=== PATIENT | male | born 1995 | race African-American/Black ===

== ENCOUNTER 2024-07-02 19:20 | Inpatient (IN) | payer SELFPAY ==
[~2024-07-02] VITALS: Ht 170.2 cm; Wt 77.1 kg
[2024-07-02] MEDS: ONDANSETRON HCL INJ 2MG/ML 2ML 2 MG/ML VIAL IV STA (20:50)
[2024-07-02] MEDS: Morphine 4mg INJECTION 4 MG/ML INJ IV STA (20:50)
[2024-07-02 21:05] LABS: BASOPHILS # (AUTO) 0.1 (0.0-0.1); BASOPHILS % 0.2 % (0.0-1.0); HEMATOCRIT 48.8 % (38.2-49.6); HEMOGLOBIN 16.9 g/dL (14.0-18.0); LYMPHOCYTES # (AUTO) 1.4 (1.0-3.2); LYMPHOCYTES % 5.8 % (18.0-39.1); MEAN CORPUSCULAR HEMOGLOBIN 33.5 pg (28-32); MEAN CORPUSCULAR HGB CONC 34.6 g/dL (31-35); MEAN CORPUSCULAR VOLUME 96.8 fL (81-99); MONOCYTES # (AUTO) 1.4 (0.2-0.8); MONOCYTES % 5.9 % (4.4-11.3); NEUTROPHILS # (AUTO) 21.2 (2.1-6.9); NEUTROPHILS % 87.2 % (38.7-80.0); PLATELET COUNT 405 x10e3/uL (140-360); RED BLOOD COUNT 5.04 x10e6/uL (4.3-5.7); RED CELL DISTRIBUTION WIDTH 12.5 % (11.7-14.4); WHITE BLOOD COUNT 24.33 x10e3/uL (4.8-10.8)
[2024-07-02 21:24] LABS: ALBUMIN 3.9 g/dL (3.5-5.0); ALBUMIN/GLOBULIN RATIO 0.8 (0.8-2.0); ANION GAP 19.2 mmol/L (8-16); BILIRUBIN,TOTAL 1.4 mg/dL (0.2-1.2); CALCIUM 9.5 mg/dL (8.4-10.2); CREATININE, SERUM 1.46 mg/dL (0.72-1.25); POTASSIUM 4.2 mmol/L (3.5-5.1); TOTAL PROTEIN 8.5 g/dL (6.5-8.1)
[2024-07-02] MEDS ORDERED: IOPAMIDOL 370 MG/ML 100 ML INFUS..BTL INJ ONE (21:47)
[2024-07-02] MEDS: ACETAMINOPHEN 325 MG TAB PO STA (22:03)
[2024-07-02] MEDS: SODIUM CHLORIDE 0.9% 1000ML 1,000 ML IV STA ×3 (22:04)
[2024-07-02] MEDS ORDERED: HYDROMORPHONE 1MG/1ML INJ IV STA (23:05)
[2024-07-02 23:12] LABS: CLARITY,URINE CLEAR (CLEAR); COLOR,URINE YELLOW (YELLOW); LEUKOCYTE ESTERASE ,URINE NEGATIVE (NEGATIVE); NITRITE,URINE NEGATIVE (NEGATIVE); PH,URINE 6 (5 - 7); PROTEIN,URINE DIPSTICK 1+ (NEGATIVE)
[2024-07-02 23:13] LABS: BILIRUBIN,URINE NEGATIVE (NEGATIVE); GLUCOSE, URINE NEGATIVE (NEGATIVE); KETONES,URINE NEGATIVE (NEGATIVE); URINE UROBILINOGEN 0.2 mg/dL (0.2 - 1)
[2024-07-02] MEDS ORDERED: DIAZEPAM INJ 5 MG/ML 2 ML IV ONE (23:15)
[2024-07-02] MEDS: IBUPROFEN 400 MG TAB PO ONE (23:25)
[2024-07-02 23:26] LABS: BACTERIA,URINE MANY /HPF; EPITHELIAL CELLS,URINE FEW /LPF
[2024-07-02 23:28] LABS: AMPHETAMINES SCREEN,URINE NEGATIVE (NEGATIVE); BENZODIAZEPINES SCREEN,URINE NEGATIVE (NEGATIVE); CANNABINOIDS SCREEN,URINE NEGATIVE (NEGATIVE); METHADONE SCREEN, URINE NEGATIVE (NEGATIVE); OPIATES SCREEN,URINE POSITIVE (NEGATIVE); PHENCYCLIDINE SCREEN,URINE NEGATIVE (NEGATIVE)
[2024-07-03] VITALS (11 sets, daily range): BP systolic 128–165; BP diastolic 86–98; PULSE 113–135; RESP 18–20; TEMP 97.8–100.3; O2SAT 95–100
[2024-07-03] MEDS: SODIUM CHLORIDE 0.9% 1000ML 1,000 ML IV SCH (01:24)
[2024-07-03] MEDS: DIAZEPAM INJ 5 MG/ML 2 ML IV ONE ×3 (01:24→03:29)
[2024-07-03 04:43] LABS: BASOPHILS % 0.3 % (0.0-1.0); EOSINOPHILS % 0.3 % (0.0-6.0); HEMATOCRIT 35.4 % (38.2-49.6); LYMPHOCYTES # (AUTO) 1.6 (1.0-3.2); LYMPHOCYTES % 11.1 % (18.0-39.1); MEAN CORPUSCULAR HEMOGLOBIN 33.4 pg (28-32); MEAN CORPUSCULAR HGB CONC 33.6 g/dL (31-35); MEAN CORPUSCULAR VOLUME 99.4 fL (81-99); MONOCYTES # (AUTO) 1.1 (0.2-0.8); MONOCYTES % 7.4 % (4.4-11.3); NEUTROPHILS # (AUTO) 11.6 (2.1-6.9); NEUTROPHILS % 79.9 % (38.7-80.0); PLATELET COUNT 265 x10e3/uL (140-360); RED BLOOD COUNT 3.56 x10e6/uL (4.3-5.7); RED CELL DISTRIBUTION WIDTH 12.4 % (11.7-14.4); WHITE BLOOD COUNT 14.55 x10e3/uL (4.8-10.8)
[2024-07-03] MEDS ORDERED: DIAZEPAM INJ 5 MG/ML 2 ML IV STA (04:56)
[2024-07-03 05:05] LABS: ALBUMIN 2.7 g/dL (3.5-5.0); ALBUMIN/GLOBULIN RATIO 0.9 (0.8-2.0); ANION GAP 14.4 mmol/L (8-16); CREATININE, SERUM 1.15 mg/dL (0.72-1.25)
[2024-07-03 05:12] LABS: HEMOGLOBIN 11.9 g/dL (14.0-18.0)
[2024-07-03 05:13] LABS: POTASSIUM 3.4 mmol/L (3.5-5.1)
[2024-07-03 05:14] LABS: CALCIUM 7.4 mg/dL (8.4-10.2)
[2024-07-03 05:15] LABS: TOTAL PROTEIN 5.8 g/dL (6.5-8.1)
[2024-07-03] MEDS: DIAZEPAM INJ 5 MG/ML 2 ML IV STA (05:15)
[2024-07-03 08:32] LABS: BAND NEUTROPHILS % (MANUAL) 2 %; EOSINOPHILS % (MANUAL) 2 % (0-7); LYMPHOCYTES % (MANUAL) 14 % (19-48); MONOCYTES % (MANUAL) 6 % (3.4-9.0); NEUTROPHILS % (MANUAL) 76 % (40-74)
[2024-07-03 08:33] LABS: PLATELET ESTIMATE ADEQUATE; PLATELET MORPHOLOGY COMMENT NORMAL; RBC MORPHOLOGY COMMENT NORMAL
[2024-07-03] MEDS: Morphine 4mg INJECTION 4 MG/ML INJ IV PRN (11:08)
[2024-07-03] MEDS: ONDANSETRON HCL INJ 2MG/ML 2ML 2 MG/ML VIAL IV PRN (11:08)
[2024-07-03 13:05] LABS: FERRITIN 604.69 ng/mL (21.81-274.66)
[2024-07-03] MEDS: LORAZEPAM INJ 2 MG/ML VIAL IV PRN (13:50)
[2024-07-03] MEDS: MULTIVITAMINS- 12 INJECTION 10 ML, FOLIC ACID MDV 1 MG, THIAMINE HCL INJ 100 MG in SODI... IV ONE (14:11)
[2024-07-03] MEDS: ENOXAPARIN SOD INJ 40 MG/0.4 ML SYR SC SCH (16:17)
[2024-07-03] MEDS: CHLORDIAZEPOXIDE HCL 25 MG CAP PO SCH (18:00)
[2024-07-03] MEDS: METOPROLOL TARTRATE INJ 1 MG/ML VIAL IV ONE (22:29)
[2024-07-04] VITALS (8 sets, daily range): BP systolic 142–174; BP diastolic 98–109; PULSE 115–124; RESP 18; TEMP 98.3–99.2; O2SAT 94–100
[2024-07-04 06:16] LABS: BASOPHILS % 0.3 % (0.0-1.0); EOSINOPHILS # (AUTO) 0.1 (0.0-0.4); EOSINOPHILS % 0.6 % (0.0-6.0); HEMATOCRIT 34.6 % (38.2-49.6); HEMOGLOBIN 11.6 g/dL (14.0-18.0); LYMPHOCYTES # (AUTO) 1.2 (1.0-3.2); LYMPHOCYTES % 9.6 % (18.0-39.1); MEAN CORPUSCULAR HEMOGLOBIN 33.4 pg (28-32); MEAN CORPUSCULAR HGB CONC 33.5 g/dL (31-35); MEAN CORPUSCULAR VOLUME 99.7 fL (81-99); MONOCYTES # (AUTO) 1.2 (0.2-0.8); MONOCYTES % 9.2 % (4.4-11.3); NEUTROPHILS # (AUTO) 10.3 (2.1-6.9); NEUTROPHILS % 79.6 % (38.7-80.0); PLATELET COUNT 294 x10e3/uL (140-360); RED BLOOD COUNT 3.47 x10e6/uL (4.3-5.7); RED CELL DISTRIBUTION WIDTH 12.5 % (11.7-14.4); WHITE BLOOD COUNT 12.95 x10e3/uL (4.8-10.8)
[2024-07-04 06:34] LABS: ALBUMIN 2.7 g/dL (3.5-5.0); ALBUMIN/GLOBULIN RATIO 0.6 (0.8-2.0); ANION GAP 14.1 mmol/L (8-16); BILIRUBIN,TOTAL 0.5 mg/dL (0.2-1.2); CALCIUM 8.7 mg/dL (8.4-10.2); CREATININE, SERUM 0.96 mg/dL (0.72-1.25); MAGNESIUM 1.7 MG/DL (1.3-2.1); TOTAL PROTEIN 6.9 g/dL (6.5-8.1)
[2024-07-04 06:35] LABS: POTASSIUM 3.1 mmol/L (3.5-5.1)
[2024-07-04] MEDS: FOLIC ACID 1 MG TAB PO SCH (08:23)
[2024-07-04] MEDS: THIAMINE HCL 100 MG TAB PO SCH (08:23)
[2024-07-04] MEDS: MULTIVITAMINS/MINERALS TAB PO SCH (08:23)
[2024-07-04] MEDS: CYANOCOBALAMIN 1,000 MCG TAB PO SCH (09:50)
[2024-07-04] MEDS: POTASSIUM CHLORIDE 10MEQ EA PO ONE (09:50)
[2024-07-04] MEDS: METOPROLOL TARTRATE 25 MG TAB PO SCH (12:43)
[2024-07-04] MEDS: LABETALOL HCL 5 MG/ML 20ML VIAL IV PRN (18:33)
[2024-07-05 03:43] VITALS: BP 158/108; PULSE 122; RESP 20; TEMP 99.4; O2SAT 97
[2024-07-05 04:24] VITALS: BP 155/101; PULSE 115; RESP 18; TEMP 98.5; O2SAT 96
[2024-07-05 06:26] LABS: BASOPHILS # (AUTO) 0.1 (0.0-0.1); BASOPHILS % 0.4 % (0.0-1.0); EOSINOPHILS # (AUTO) 0.1 (0.0-0.4); EOSINOPHILS % 0.7 % (0.0-6.0); HEMATOCRIT 33.1 % (38.2-49.6); HEMOGLOBIN 10.9 g/dL (14.0-18.0); LYMPHOCYTES # (AUTO) 1.1 (1.0-3.2); LYMPHOCYTES % 8.3 % (18.0-39.1); MEAN CORPUSCULAR HEMOGLOBIN 32.8 pg (28-32); MEAN CORPUSCULAR HGB CONC 32.9 g/dL (31-35); MEAN CORPUSCULAR VOLUME 99.7 fL (81-99); MONOCYTES # (AUTO) 1.5 (0.2-0.8); MONOCYTES % 11.3 % (4.4-11.3); NEUTROPHILS # (AUTO) 10.6 (2.1-6.9); NEUTROPHILS % 78.3 % (38.7-80.0); PLATELET COUNT 305 x10e3/uL (140-360); RED BLOOD COUNT 3.32 x10e6/uL (4.3-5.7); RED CELL DISTRIBUTION WIDTH 12.3 % (11.7-14.4)
[2024-07-05 06:46] LABS: ALBUMIN 2.6 g/dL (3.5-5.0); ALBUMIN/GLOBULIN RATIO 0.6 (0.8-2.0); ANION GAP 10.2 mmol/L (8-16); BILIRUBIN,TOTAL 0.5 mg/dL (0.2-1.2); CALCIUM 9.8 mg/dL (8.4-10.2); CREATININE, SERUM 0.86 mg/dL (0.72-1.25); MAGNESIUM 1.8 MG/DL (1.3-2.1); TOTAL PROTEIN 6.7 g/dL (6.5-8.1)
[2024-07-05 06:48] LABS: POTASSIUM 3.2 mmol/L (3.5-5.1)
[2024-07-05 08:45] VITALS: BP 158/108; PULSE 122; RESP 18; TEMP 98.5; O2SAT 96
[2024-07-05 09:22] VITALS: BP 157/99; PULSE 109; RESP 18; TEMP 97.3; O2SAT 99
[2024-07-05] MEDS: POTASSIUM CHLORIDE 10MEQ EA PO ONE ×2 (10:00→11:57)
[2024-07-05] MEDS: LOSARTAN POTASSIUM 25 MG TAB PO SCH (10:01)
[2024-07-05 10:14] LABS: LYMPHOCYTES % (MANUAL) 8 % (19-48); MONOCYTES % (MANUAL) 8 % (3.4-9.0); NEUTROPHILS % (MANUAL) 82 % (40-74); PLATELET ESTIMATE ADEQUATE; PLATELET MORPHOLOGY COMMENT NORMAL; RBC MORPHOLOGY COMMENT NORMAL; REACTIVE LYMPHOCYTES 2
[2024-07-05] MEDS ORDERED: PANTOPRAZOLE SO40 MG PO (11:54)
[2024-07-05] MEDS ORDERED: COZAAR25 MG PO (11:54)
[2024-07-05] MEDS ORDERED: LOPRESSOR25 MG PO (11:54)
[2024-07-05] MEDS ORDERED: B-1100 MG PO (11:54)
[2024-07-05] MEDS ORDERED: CIPRO500 MG PO (11:54)
[2024-07-05] MEDS ORDERED: METRONIDAZOLE500 MG PO (11:54)
[2024-07-05 13:06] VITALS: BP 158/104; PULSE 105; RESP 18; TEMP 98.6; O2SAT 100
[2024-07-05 16:18] VITALS: BP 164/101; PULSE 113; RESP 18; TEMP 99.1; O2SAT 100
[2024-07-05] MEDS ORDERED: METOPROLOL TARTRATE 25 MG TAB PO SCH (22:00)
== END 2024-07-05 18:45 | disposition home or self-care (01) | DRG 871 ==
LOC: EDBD 19:35 → ER 19:35 → ERHOLD 21:29 → MED/SURG2 07-03 14:15
PROVIDERS: ADMIT Internal Medicine; ATTEND Internal Medicine
PROC: 3E0333Z Introduction of Anti-inflammatory into Peripheral Vein, Percutaneous Approach (ICD-10-PCS; principal; 2024-07-02)
PROC: HZ2ZZZZ Detoxification Services for Substance Abuse Treatment (ICD-10-PCS; 2024-07-02)
DX: A41.9 Sepsis, unspecified organism (principal); K85.20 Alcohol induced acute pancreatitis without necrosis or infection; N17.9 Acute kidney failure, unspecified; F10.239 Alcohol dependence with withdrawal, unspecified; R65.20 Severe sepsis without septic shock; E86.0 Dehydration; D64.9 Anemia, unspecified; F17.210 Nicotine dependence, cigarettes, uncomplicated
CPT/HCPCS: 36415; 71045; 74177; 76705; 80053; 80307; 80320; 81001; 82607; 82728; 83540; 83605; 83690; 83735; 84466; 85025; 87040; 93005; 99284; J1170; J1650; J2060; J2270; J2405; J2470; J2543; J3360; J3411; J7030; Q9967